=== PATIENT | female | born 1970 | race Caucasian/White ===

== ENCOUNTER 2016-05-07 10:45 | Outpatient (RCR) | payer OTHER ==
[~2016-05-07 10:45] MED LIST: ALBUTEROL0.09 MG/A3 IH; AMOXICILLIN 8751 TAB PO; ARMOUR THYROID15 MG PO; LORTAB 5/500 501 TAB PO; NEXIUM 40MG40 MG PO; NO HOME MEDICATIONS; PHENERGAN W/CO120 ML PO; PHENERGAN/CODEIN1 ML PO; THERAFLU1 PDS PO; VICODIN 5/5001 UDTAB PO; VITAMIN B COMPL1 T16 PO; ZITHROMAX Z PA250 MG PO; ZITHROMAX250 MG PO
== END 2016-06-02 11:18 | disposition home or self-care (01) ==
LOC: WSPT 10:45
DX: S92.191D Other fracture of right talus, subsequent encounter for fracture with routine healing (principal); V29.88XD Motorcycle rider (driver) (passenger) injured in other specified transport accidents, subsequent encounter

== ENCOUNTER 2017-05-04 08:15 | Outpatient (RCR) | payer OTHER | END 2017-05-25 14:52 | disposition home or self-care (01) | LOC: WSPT 08:15 | DX: R42 Dizziness and giddiness (principal) | CPT/HCPCS: G8978-GP; G8979-GP ==